=== PATIENT | female | born 1975 | race Caucasian/White ===

== ENCOUNTER → 2018-08-28 | Outpatient (CLI) | payer OTHER ==
[2006-03-12 19:00] VITALS: PULSE 66; TEMP 98.1
== END ==
LOC: MC.RAD 14:19
DX: Z12.31 Encounter for screening mammogram for malignant neoplasm of breast (principal); N64.89 Other specified disorders of breast

== ENCOUNTER → 2018-08-31 | Outpatient (CLI) | payer OTHER ==
[2006-03-12 19:00] VITALS: PULSE 66; TEMP 98.1
== END ==
LOC: MC.RAD 08:00
DX: N64.89 Other specified disorders of breast (principal)
CPT/HCPCS: G0279

== ENCOUNTER → 2020-11-06 | Outpatient (CLI) | payer OTHER ==
[2006-03-12 19:00] VITALS: PULSE 66; TEMP 98.1
== END ==
LOC: MC.RAD 13:00
DX: Z12.31 Encounter for screening mammogram for malignant neoplasm of breast (principal)

== ENCOUNTER → 2021-07-29 | Outpatient (CLI) | payer OTHER ==
[2006-03-12 19:00] VITALS: PULSE 66; TEMP 98.1
== END ==
LOC: COL.RAD 08:29
DX: K21.9 Gastro-esophageal reflux disease without esophagitis (principal)

== ENCOUNTER → 2021-11-25 | Outpatient (CLI) | payer OTHER ==
[2006-03-12 19:00] VITALS: PULSE 66; TEMP 98.1
== END ==
LOC: COL.LAB 14:59
DX: Z00.00 Encounter for general adult medical examination without abnormal findings (principal); Z71.3 Dietary counseling and surveillance; K21.9 Gastro-esophageal reflux disease without esophagitis; R53.81 Other malaise